=== PATIENT | male | born 1970 | race Caucasian/White ===

== ENCOUNTER 2019-03-08 15:38 | Outpatient (CLI) | payer OTHER, SELFPAY ==
--- NOTE | 2019-03-12 21:55 | ONC FU_ITS ---
Dr. Arrieta Patient Follow-Up Note Patient: Ernesto Chakraborty Unit #: [id number]: 1970 Dicatated By: Tiago Arrieta M.D.Date of Visit:Mar 08, 2019 Onc Med Follow-up/Prog Note Chief Complaint: Pancreatic cancer. History of Present Illness: This is a 48 year-old man with moderately differentiated adenocarcinoma of the pancreas, stage IA (T1, N0, M0). He had been found to have a mass in the mid body of the pancreas in May 2011, discovered in the course of evaluation for a second episode of pancreatitis. Followup CT scans and MRI showed a cystic mass at the pancreatic head/body junction. He underwent exploratory laparotomy with cholecystectomy, left pancreatectomy and splenectomy, partial omentectomy, and intra-abdominal lymph node dissection on 02/07/12. There was a dominant cyst located right at the genu, but pathology also showed multiple other cystlike structures which comprised approximately 20% of the parenchyma. The largest cyst, which measured 4.5 cm, showed focal moderately differentiated adenocarcinoma arising in a background of intraductal pancreatic mucinous neoplasm with low-grade and multifocal high-grade dysplasia. The margin was noted to be uninvolved by invasive carcinoma, but there was low-grade dysplasia noted at the pancreatic resection margin. He was given postoperative adjuvant treatment with radiation and concurrent 5-FU infusion chemotherapy. His treatment was completed on 05/12/2012 to a total radiation dose of 5040 cGy. He has remained on observation following the chemoradiation, thus far with no evidence of recurrence. His postoperative course was complicated by multiple pulmonary emboli, confirmed by CT pulmonary angiogram in February 3012. He continued anticoagulation with warfarin until September 2012. He also developed overt diabetes during his chemoradiation. He has no other medical illnesses. He is a nonsmoker. INTERIM HISTORY: Surveillance CT of the abdomen/pelvis on 05/28/2018 showed postoperative changes of partial pancreatectomy and splenectomy. There was no evidence of recurrent disease. There was evidence of left ventral upper abdominal epigastric hernia with herniation of a small bowel loop. The appearance was unchanged from a previous study in 2018. He is seen for a scheduled followup visit. He has been feeling pretty good generally. His main complaint is that he is recently was given steroid therapy and antibiotic for symptoms of sinusitis and respiratory tract infection. Despite those treatment measures, he still wakes up every morning with head congestion, and he continues to have associated cough productive of yellow sputum. He did have fever over New Year's, at the onset of the infection. His energy is still okay, and he has normal activity. ECOG score is 0. His appetite is good. His weight is basically stable. His breathing was a little tight, but he says it is okay now. He has not been having chest pain. He was having abdominal pain with Tresiba, but that seems to be better now. He has no other GI complaints. He has frequent urination. He has been having pain in his knees and legs, and he also has been having leg cramps at night. He has some headaches. He has no focal neurologic symptoms. Medications: Lisinopril 1 Tablet (of 20 mg) Oral daily, Tresiba 62 Units (of 100 Units/mL) Subcutaneous at bedtime Allergies: No Known Allergies. Review of Systems: Constitutional - His energy is good, and he has normal activity. Appetite is good. His weight is up a little. No fever or night sweats. ECOG score is 0, ENMT - He has had some sinus congestion/drainage. No mouth sores. No sore throat or difficulty swallowing, Hematologic/Lymphatic - No abnormal bruising or bleeding, Respiratory - His breathing was tight, but is OK now. He has had cough productive of yellow sputum. No pleuritic pain or hemoptysis, Cardiovascular - No angina pain. No palpitations, Gastrointestinal - He has had some abdominal pain with Tresiba. No nausea or vomiting. No heartburn or acid reflux. No diarrhea or constipation. No blood in the stool or black stools, Genitourinary (M) - He has urinary frequency. No dysuria or hematuria. No urgency or incontinence, Musculoskeletal - He has had some pain in his knees and legs. He also has leg cramps at night, Integumentary - No skin complications, Neurologic - He has had some headaches. No dizziness. No numbness/paresthesias or other focal neurologic symptoms, Psychiatric - No anxiety or depression. No insomnia. Vital Signs: Performed on Mar 08, 2019 15:55 Height - 73.00 in Weight - 280.2 lbs (HIGH) BSA - 2.48 sq.m BMI - 36.97 (HIGH) Temperature - 97.7 F (LOW) Pulse - 75 /min Respiration - 20 /min BP - 137/99 mm(hg) O2 Sat - 98 % Pain - 0 Physical Examination: Constitutional - He looks good generally, Eyes - Sclerae nonicteric. Conjunctivae clear, ENMT - No lesions noted in the oral cavity, Hematologic/Lymphatic - No cervical, clavicular, or axillary adenopathy, Respiratory - Lungs are clear with good air movement bilaterally, Cardiovascular - Heart rhythm is regular. There is no murmur, gallop, or rub noted, Abdomen - Soft. Liver is not enlarged. There is no abdominal mass or ascites noted and there is no inguinal adenopathy, Extremities - No edema, Neurologic - No focal neurologic deficits noted. Impression: 1. Patient with moderately differentiated adenocarcinoma of the pancreas, stage IA. It had developed in association with intraductal pancreatic mucinous neoplasm. 2. His treatment included left pancreatectomy/splenectomy/partial omentectomy in January 2012 followed by adjuvant chemoradiation, which he completed in April 2012. 3. His surgery was complicated by pulmonary emboli. He continued anticoagulation until September 2012. 4. He developed type II diabetes during the chemoradiation. He had previously been under the care of Dr. Pearce in [place]. He continued on observation following the chemoradiation. During followup he has had some ongoing issues related to his diabetes management. He recently has had persistent sinusitis symptoms despite an initial course of antibiotic therapy. Overall, though, he has been doing well clinically, thus far with no evidence of recurrence of the pancreatic cancer. Plan: He remains on observation/expectant management for the pancreatic cancer. He will continue treatment with Tresiba 62 units daily. He will come in later this week for fasting laboratory studies. In the meantime, he will be given antibiotic coverage with Augmentin for the sinusitis. I will see him again in 1 year, or sooner as needed. Signed By: Tiago Arrieta M.D. <<Signature on File>>
== END 2019-03-08 15:39 | disposition home or self-care (01) ==
LOC: ONCMED 15:41
PROVIDERS: Family Provider Internal Medicine Medical Oncology; PCP Internal Medicine Medical Oncology; Visit Provider Internal Medicine Medical Oncology
DX: Z08 Encounter for follow-up examination after completed treatment for malignant neoplasm (principal); Z85.07 Personal history of malignant neoplasm of pancreas; E11.9 Type 2 diabetes mellitus without complications; Z90.410 Acquired total absence of pancreas; Z92.3 Personal history of irradiation; Z92.21 Personal history of antineoplastic chemotherapy; Z86.711 Personal history of pulmonary embolism; Z79.4 Long term (current) use of insulin
CPT/HCPCS: 99214

== ENCOUNTER 2019-04-02 07:07 | Outpatient (CLI) | payer OTHER, SELFPAY ==
[2019-04-02 08:12] LABS: Basophils # 0.1 10^3/uL (0.0-0.1); Basophils % 0.9 %; Eosinophils # 0.4 10^3/uL (0.0-0.8); Eosinophils % 5.1 %; Hematocrit 48.3 % (42.0-52.0); Hemoglobin 15.9 g/dL (11.7-16.6); Lymphocytes % 25.4 %; Mean Corpuscular HGB Conc 32.9 g/dL (30.0-36.0); Mean Corpuscular Hemoglobin 29.4 pg (28.0-34.0); Mean Corpuscular Volume 89.4 fL (80-94); Monocytes # 0.9 10^3/uL (0.2-0.9); Monocytes % 11.4 %; Neutrophils # 4.4 10^3/uL (1.8-7.7); Neutrophils % 57.1 %; Nucleated Red Blood Cells % 0 %; Platelet Count 398 10^3/cmm (130-400); Red Cell Distribution Width 13.3 % (12.1-15.1); White Blood Count 7.7 10^3/uL (4.0-10.0)
[2019-04-02 08:27] LABS: Estmated Average Glucose 255; Hemoglobin A1C 10.5 % (4.0-6.0)
[2019-04-02 08:36] LABS: Thyroid Stimulating Hormone 3.09 uIU/mL (0.27-4.20)
[2019-04-02 08:47] LABS: Alanine Aminotransferase 14 U/L (0-41); Albumin Level 3.9 g/dL (3.5-5.2); Alkaline Phosphatase 88 IU/L (40-130); Anion Gap 14.5 (5-19); Aspartate Amino Transferase 16 U/L (0-40); Blood Urea Nitrogen 11 mg/dL (6-20); Calcium 9.4 mg/dL (8.5-10.5); Carbon Dioxide 30 mmol/L (22-29); Chloride 98 mmol/L (98-107); Chol HDL Ratio 5.03 mg/dL (1.0-5.00); Cholesterol 181 mg/dL (0-200); Globulin 3.5 g/dL (1.3-4.6); Glomerular Filtration Rate 79.8 mL/min (90-130); Glucose 130 mg/dL (65-115); HDL Cholesterol 36 mg/dL (60-100); Iron 121 ug/dL (59-158); LDL Cholesterol Calculated 121 mg/dL (50-129); LDL HDL Ratio 3.36 RATIO (0.00-3.22); Percent Saturation 41.2 % (20-50); Potassium 4.5 mmol/L (3.5-5.1); Sodium 138 mmol/L (136-145); Total Bilirubin 0.6 mg/dL (0.15-1.2); Total Iron Binding Capacity 293 mcg/dl; Total Protein 7.4 g/dL (6.6-8.7); Triglycerides 121 mg/dL (0-150); Unsaturated Iron Binding 172 ug/dL (112-347)
[2019-04-02 09:22] LABS: Cancer Antigen 19 9 5.9 U/mL (0-35)
== END 2019-04-02 07:08 | disposition home or self-care (01) ==
LOC: ONCMED 07:09
PROVIDERS: Family Provider Internal Medicine Medical Oncology; PCP Internal Medicine Medical Oncology; Visit Provider Internal Medicine Medical Oncology
DX: Z85.07 Personal history of malignant neoplasm of pancreas (principal); E11.9 Type 2 diabetes mellitus without complications; R53.83 Other fatigue; R25.2 Cramp and spasm
CPT/HCPCS: 80053; 80061; 82378; 83036; 83540; 83550; 84443; 85025; 86301

== ENCOUNTER 2020-04-25 15:38 | Outpatient (CLI) | payer OTHER, SELFPAY ==
--- NOTE | 2020-04-26 07:28 | ONC FU_ITS ---
Dr. Arrieta Patient Follow-Up Note Patient: Ernesto Chakraborty Unit #: [id number]: 1970 Dicatated By: Tiago Arrieta M.D.Date of Visit:Apr 25, 2020 Onc Med Follow-up/Prog Note Chief Complaint: Pancreatic cancer. History of Present Illness: This is a 49 year-old man with moderately differentiated adenocarcinoma of the pancreas, stage IA (T1, N0, M0). He had been found to have a mass in the mid body of the pancreas in May 2011, discovered in the course of evaluation for a second episode of pancreatitis. Followup CT scans and MRI showed a cystic mass at the pancreatic head/body junction. He underwent exploratory laparotomy with cholecystectomy, left pancreatectomy and splenectomy, partial omentectomy, and intra-abdominal lymph node dissection on 02/07/12. There was a dominant cyst located right at the genu, but pathology also showed multiple other cystlike structures which comprised approximately 20% of the parenchyma. The largest cyst, which measured 4.5 cm, showed focal moderately differentiated adenocarcinoma arising in a background of intraductal pancreatic mucinous neoplasm with low-grade and multifocal high-grade dysplasia. The margin was noted to be uninvolved by invasive carcinoma, but there was low-grade dysplasia noted at the pancreatic resection margin. He was given postoperative adjuvant treatment with radiation and concurrent 5-FU infusion chemotherapy. His treatment was completed on 05/12/2012 to a total radiation dose of 5040 cGy. He was then followed on observation/expectant management. As of 05/28/[address] abdomen/pelvis showed postoperative changes of partial pancreatectomy and splenectomy. There was evidence of left ventral upper abdominal epigastric hernia with herniation of a small bowel loop, but the appearance was unchanged from a previous study in 2018. There was no evidence of recurrent disease. His postoperative course was complicated by multiple pulmonary emboli, confirmed by CT pulmonary angiogram in February 3012. He continued anticoagulation with warfarin until September 2012. He developed overt diabetes during his chemoradiation, and during subsequent follow-up he also was found to have hypertension. He has no other medical illnesses. He is a nonsmoker. INTERIM HISTORY: He is seen for a scheduled followup visit. He has been feeling pretty good generally, though he was diagnosed with COVID-19 virus infection in February. With had illness he had weakness/fatigue and slight fever for couple of days. His energy is better now, and he is back to normal activity. ECOG score 0. He has good appetite. His weight is up a few pounds. He has had no further fever. During the past 2 to 3 weeks he was having significant night sweating on a pretty regular basis, but that seems to have stopped in the last 2 to 3 days. He has no shortness of breath, cough, or chest pain. He has no GI/ complaints other than frequent urination. He has no significant joint or bone pain. He has just occasional headache. He does not complain of dizziness. He has no numbness/paresthesia or other focal neurologic symptoms. He has continued treatment with Tresiba 62 units daily for the diabetes. He does not check his blood sugars on a regular basis. Medications: Lisinopril 1 Tablet (of 20 mg) Oral daily, Tresiba 62 Units (of 100 Units/mL) Subcutaneous at bedtime Allergies: No Known Allergies. Vital Signs: Performed on Apr 25, 2020 15:52 Height - 73.00 in Weight - 284.4 lbs (HIGH) BSA - 2.50 sq.m BMI - 37.52 (HIGH) Temperature - 97.9 F (LOW) Pulse - 78 /min Respiration - 18 /min BP - 164/90 mm(hg) (HIGH) O2 Sat - 95 % (LOW) Pain - 0 Fatigue - 0 Physical Examination: Constitutional - He looks good generally, Eyes - Sclerae nonicteric. Conjunctivae clear, ENMT - No lesions noted in the oral cavity, Hematologic/Lymphatic - No cervical, clavicular, or axillary adenopathy, Respiratory - Lungs are clear with good air movement bilaterally, Cardiovascular - Heart rhythm is regular. There is no murmur, gallop, or rub noted, Abdomen - Soft. Liver is not enlarged. There is no abdominal mass or ascites noted and there is no inguinal adenopathy, Extremities - No edema, Neurologic - No focal neurologic deficits noted. Problem List: 1. Moderately differentiated adenocarcinoma of the pancreas, stage IA. It had developed in association with intraductal pancreatic mucinous neoplasm. 2. His treatment included left pancreatectomy/splenectomy/partial omentectomy in January 2012 followed by adjuvant chemoradiation, which he completed in April 2012. 3. His surgery was complicated by pulmonary emboli. He continued anticoagulation until September 2012. 4. Type II diabetes during the chemoradiation. 5. Hypertension. Problems Addressed with this Encounter and Plan: 1. Patient with moderately differentiated adenocarcinoma of the pancreas, stage IA. It had developed in association with intraductal pancreatic mucinous neoplasm. His treatment included left pancreatectomy/splenectomy/partial omentectomy in January 2012 followed by adjuvant chemoradiation, which he completed in April 2012. As of May [address] scans had shown no evidence of recurrent neoplasm. During subsequent follow-up his clinical status has remained stable with no evidence of recurrence of the pancreatic cancer. He will be scheduled for repeat laboratory studies to include CBC, comprehensive metabolic profile, and CEA/CA 19-9 levels. In the absence of any evidence of disease progression, I will just see him again in one year. 2. He developed type II diabetes during the chemoradiation. He had previously been under the care of Dr. Pearce in [place]. He has been on treatment with Tresiba 62 units daily. He does not check his blood sugar on a regular basis and he has not continued regular follow-up for it. As of last year his hemoglobin A1c was still significantly elevated at 10.5%, but at that point it was actually improving. I also will repeat his hemoglobin A1c and his fasting lipid profile. Depending on those results, I will adjust medication and/or arrange for referral to an electronic industrial controls mechanic as indicated. 3. Hypertension. His blood pressure is elevated today. He is going to start monitoring it at home. Signed By: Tiago Arrieta M.D. <<Signature on File>>
== END 2020-04-25 15:39 | disposition home or self-care (01) ==
LOC: ONCMED 15:39
PROVIDERS: Family Provider Internal Medicine Medical Oncology; PCP Internal Medicine Medical Oncology; Visit Provider Internal Medicine Medical Oncology
DX: C25.8 Malignant neoplasm of overlapping sites of pancreas (principal); I10 Essential (primary) hypertension; E11.9 Type 2 diabetes mellitus without complications; Z90.411 Acquired partial absence of pancreas; Z90.81 Acquired absence of spleen; Z92.3 Personal history of irradiation; Z92.21 Personal history of antineoplastic chemotherapy; Z86.711 Personal history of pulmonary embolism; Z79.01 Long term (current) use of anticoagulants; Z79.4 Long term (current) use of insulin
CPT/HCPCS: 99214

== ENCOUNTER 2020-05-01 06:12 | Outpatient (CLI) | payer OTHER, SELFPAY ==
[2020-05-01 08:12] LABS: Basophils # 0.1 10^3/uL (0.0-0.1); Basophils % 0.8 %; Eosinophils # 0.3 10^3/uL (0.0-0.8); Eosinophils % 3.7 %; Hematocrit 48.3 % (42.0-52.0); Hemoglobin 15.9 g/dL (11.7-16.6); Lymphocytes % 24.9 %; Mean Corpuscular HGB Conc 32.9 g/dL (30.0-36.0); Mean Corpuscular Hemoglobin 28.9 pg (28.0-34.0); Mean Corpuscular Volume 87.8 fL (80-94); Monocytes # 0.9 10^3/uL (0.2-0.9); Monocytes % 11.1 %; Neutrophils # 4.64 10^3/uL (1.8-7.7); Neutrophils % 59.2 %; Nucleated Red Blood Cells % 0 %; Platelet Count 429 10^3/cmm (130-400); Red Cell Distribution Width 13.4 % (12.1-15.1); White Blood Count 7.8 10^3/uL (4.0-10.0)
[2020-05-01 08:18] LABS: Estmated Average Glucose 272; Hemoglobin A1C 11.1 % (4.0-6.0)
[2020-05-01 08:24] LABS: Carcinoembryonic Antigen 1.3 ng/mL (0.0-4.7); Thyroid Stimulating Hormone 2.24 uIU/mL (0.27-4.20)
[2020-05-01 08:35] LABS: Alanine Aminotransferase 19 U/L (0-41); Alkaline Phosphatase 89 IU/L (40-130); Anion Gap 12.7 (5-19); Aspartate Amino Transferase 17 U/L (0-40); Blood Urea Nitrogen 15 mg/dL (6-20); Calcium 8.7 mg/dL (8.5-10.5); Carbon Dioxide 28 mmol/L (22-29); Chloride 101 mmol/L (98-107); Globulin 3.2 g/dL (1.3-4.6); Glomerular Filtration Rate 102.7 mL/min (90-130); Glucose 126 mg/dL (65-115); Lipase 6 U/L (13-60); Osmolality Calculated 288 mOsm/kg (285-295); Potassium 3.7 mmol/L (3.5-5.1); Sodium 138 mmol/L (136-145); Total Bilirubin 0.6 mg/dL (0.15-1.2); Total Protein 7.2 g/dL (6.6-8.7)
[2020-05-01 08:59] LABS: Cancer Antigen 19 9 5.21 U/mL (0-35)
== END 2020-05-01 06:13 | disposition home or self-care (01) ==
LOC: ONCMED 06:14
PROVIDERS: Visit Provider Internal Medicine Medical Oncology
DX: C25.8 Malignant neoplasm of overlapping sites of pancreas (principal); E11.9 Type 2 diabetes mellitus without complications; E78.5 Hyperlipidemia, unspecified; R53.83 Other fatigue
CPT/HCPCS: 36415; 80053; 82378; 83036; 83690; 84443; 85025; 86301

== ENCOUNTER 2020-05-24 06:19 | Outpatient (CLI) | payer OTHER, SELFPAY ==
[2020-05-24 07:07] LABS: Chol HDL Ratio 4.69 mg/dL (1.0-5.00); Cholesterol 169 mg/dL (0-200); HDL Cholesterol 36 mg/dL (60-100); LDL Cholesterol Calculated 109 mg/dL (50-129); LDL HDL Ratio 3.03 RATIO (0.00-3.22); Triglycerides 118 mg/dL (0-150)
== END 2020-05-24 06:20 | disposition home or self-care (01) ==
LOC: ONCMED 06:20
PROVIDERS: Visit Provider Internal Medicine Medical Oncology
DX: C25.9 Malignant neoplasm of pancreas, unspecified (principal)
CPT/HCPCS: 80061

== ENCOUNTER 2021-04-23 12:31 | Outpatient (CLI) | payer OTHER, SELFPAY ==
[2021-04-23 13:22] LABS: Basophils # 0.1 10^3/uL (0.0-0.1); Basophils % 0.6 %; Eosinophils # 0.2 10^3/uL (0.0-0.8); Eosinophils % 1.9 %; Hematocrit 45.2 % (42.0-52.0); Hemoglobin 14.7 g/dL (11.7-16.6); Lymphocytes # 3.5 10^3/uL (0.8-4.8); Lymphocytes % 32.3 %; Mean Corpuscular HGB Conc 32.5 g/dL (30.0-36.0); Mean Corpuscular Hemoglobin 28.8 pg (28.0-34.0); Mean Corpuscular Volume 88.5 fl (80-94); Mean Platelet Volume 10.8 fL (7.4-10.4); Monocytes # 1.1 10^3/uL (0.2-0.9); Monocytes % 10.1 %; Neutrophils # 5.95 10^3/uL (1.8-7.7); Neutrophils % 54.9 %; Nucleated Red Blood Cells % 0 %; Platelet Count 346 10^3/cmm (130-400); Red Blood Count 5.11 10^6/uL (4.1-5.3); Red Cell Distribution Width 13.1 % (12.1-15.1); White Blood Count 10.8 10^3/uL (4.0-10.0)
[2021-04-23 13:39] LABS: Alanine Aminotransferase 15 U/L (0-41); Albumin Level 4.1 g/dL (3.5-5.2); Alkaline Phosphatase 82 IU/L (40-130); Anion Gap 14.3 (5-19); Aspartate Amino Transferase 15 U/L (0-40); Blood Urea Nitrogen 12 mg/dL (6-20); Calcium 8.4 mg/dL (8.5-10.5); Carbon Dioxide 28 mmol/L (22-29); Chloride 96 mmol/L (98-107); Globulin 2.6 g/dL (1.3-4.6); Glomerular Filtration Rate 119.4 mL/min (90-130); Glucose 216 mg/dL (65-115); Osmolality Calculated 284 mOsm/kg (285-295); Potassium 4.3 mmol/L (3.5-5.1); Sodium 134 mmol/L (136-145); Total Bilirubin 0.5 mg/dL (0.15-1.2); Total Protein 6.7 g/dL (6.6-8.7)
[2021-04-23 14:14] LABS: Cancer Antigen 19 9 4.74 U/mL (0-35)
[2021-04-23 15:39] LABS: Estmated Average Glucose 272; Hemoglobin A1C 11.1 % (4.0-6.0)
--- NOTE | 2021-04-23 19:17 | ONC FU_ITS ---
Dr. Arrieta Patient Follow-Up Note Patient: Ernesto Chakraborty Unit #: [id number]: 1970 Dicatated By: Tiago Arrieta M.D.Date of Visit:Apr 23, 2021 Onc Med Follow-up/Prog Note Chief Complaint: Pancreatic cancer. History of Present Illness: This is a 50 year-old man with moderately differentiated adenocarcinoma of the pancreas, stage IA (T1, N0, M0). He had been found to have a mass in the mid body of the pancreas in May 2011, discovered in the course of evaluation for a second episode of pancreatitis. Followup CT scans and MRI showed a cystic mass at the pancreatic head/body junction. He underwent exploratory laparotomy with cholecystectomy, left pancreatectomy and splenectomy, partial omentectomy, and intra-abdominal lymph node dissection on 02/07/12. There was a dominant cyst located right at the genu, but pathology also showed multiple other cystlike structures which comprised approximately 20% of the parenchyma. The largest cyst, which measured 4.5 cm, showed focal moderately differentiated adenocarcinoma arising in a background of intraductal pancreatic mucinous neoplasm with low-grade and multifocal high-grade dysplasia. The margin was noted to be uninvolved by invasive carcinoma, but there was low-grade dysplasia noted at the pancreatic resection margin. He was given postoperative adjuvant treatment with radiation and concurrent 5-FU infusion chemotherapy. His treatment was completed on 05/12/2012 to a total radiation dose of 5040 cGy. He was then followed on observation/expectant management. As of 05/28/[address] abdomen/pelvis showed postoperative changes of partial pancreatectomy and splenectomy. There was evidence of left ventral upper abdominal epigastric hernia with herniation of a small bowel loop, but the appearance was unchanged from a previous study in 2018. There was no evidence of recurrent disease. His postoperative course was complicated by multiple pulmonary emboli, confirmed by CT pulmonary angiogram in February 3012. He continued anticoagulation with warfarin until September 2012. He developed overt diabetes during his chemoradiation, and during subsequent follow-up he also was found to have hypertension. He has no other medical illnesses. He is a nonsmoker. INTERIM HISTORY: As of his follow-up visit on 04/25/2020 appear to be doing well clinically with no evidence of recurrence of the pancreatic cancer. His hemoglobin A1c, though, was significantly elevated at 11.1%. At that point he had agreed to see an mobile development manager for management of the diabetes, but ultimately that did not happen, mainly because of issues related to the coronavirus restrictions. He is seen for a scheduled follow-up visit. He has been feeling good generally. He has good energy and activity tolerance. ECOG score is 0. He has good appetite. As before, he has not been monitoring his blood sugars. He has not had fever. He occasionally has sweating at night. For the past 3 weeks he has been waking up with sinus/nasal congestion. He has been using Sudafed. He has not had sore mouth or throat. He does not complain of cough. His breathing has otherwise been okay. He has not had chest pain. He has no GI or complaints. He has no significant joint or bone pain. He does not complain of headache or dizziness. He has started having pain occasionally on the bottoms of his toes. I suspect that it is the beginning of neuropathy. Medications: Lisinopril 1 Tablet (of 20 mg) Oral daily, Tresiba 62 Units (of 100 Units/mL) Subcutaneous at bedtime Allergies: No Known Allergies. Vital Signs: Performed on Apr 23, 2021 16:10 Height - 73.00 in BP - 144/81 mm(hg) (HIGH) Performed on Apr 23, 2021 16:08 Height - 73.00 in Weight - 284.2 lbs (LOW) BSA - 2.50 sq.m BMI - 37.50 (HIGH) Temperature - 97.0 F (LOW) Pulse - 70 /min Respiration - 16 /min BP - 157/84 mm(hg) (HIGH) O2 Sat - 99 % Pain - 0 Fatigue - 2 Physical Examination: Constitutional - He looks good generally, Eyes - Sclerae nonicteric. Conjunctivae clear, ENMT - No lesions noted in the oral cavity, Hematologic/Lymphatic - No cervical, clavicular, or axillary adenopathy, Respiratory - Lungs are clear with good air movement bilaterally, Cardiovascular - Heart rhythm is regular. There is no murmur, gallop, or rub noted, Abdomen - Soft. Liver is not enlarged. There is no abdominal mass or ascites noted and there is no inguinal adenopathy, Extremities - No edema, Neurologic - No focal neurologic deficits noted. Lab/Imaging: Test performed on Apr 23, 2021 12:55 Sodium 134 mmol/L Potassium 4.3 mmol/L Chloride 96 mmol/L Est Avg Glucose (eAG) 272 mg/dL CO2 28 mmol/L Anion Gap 14.3 BUN 12 mg/dL Creatinine 0.7 mg/dL Cr Clearance (Est) 230.20 mL/min eGFR 119.4 mL/min Glucose 216 mg/dL Osmolality - Calculated 284 mOsm/kg Calcium 8.4 mg/dL Protein, Total 6.7 g/dL Albumin 4.1 g/dL Globulin 2.6 g/dL Bilirubin, Total 0.5 mg/dL ALT (SGPT) 15 U/L AST (SGOT) 15 U/L Alkaline Phosphatase 82 IU/L Hemoglobin A1C % 11.1 % WBC 10.8 10 3/uL RBC 5.11 10 6/uL HGB 14.7 g/dL HCT 45.2 % MCV 88.5 fl MCH 28.8 pg MCHC 32.5 g/dL RDW 13.1 % Platelet Count 346 10 3/cmm MPV 10.8 fL Neutrophils 5.95 10 3/uL Lymphocytes 3.5 10 3/uL Monocytes 1.1 10 3/uL Eosinophils 0.2 10 3/uL Basophils 0.1 10 3/uL Neutrophil % 54.9 % Lymphocyte % 32.3 % Monocyte % 10.1 % Eosinophil % 1.9 % Basophils % 0.6 % NRBC % 0 % CA 19-9 4.74 U/mL Problem List: 1. Moderately differentiated adenocarcinoma of the pancreas, stage IA. It had developed in association with intraductal pancreatic mucinous neoplasm. 2. His treatment included left pancreatectomy/splenectomy/partial omentectomy in January 2012 followed by adjuvant chemoradiation, which he completed in April 2012. 3. His surgery was complicated by pulmonary emboli. He continued anticoagulation until September 2012. 4. Type II diabetes during the chemoradiation. 5. Hypertension. Problems Addressed with this Encounter and Plan: 1. Patient with moderately differentiated adenocarcinoma of the pancreas, stage IA. It had developed in association with intraductal pancreatic mucinous neoplasm. His treatment included left pancreatectomy/splenectomy/partial omentectomy in January 2012 followed by adjuvant chemoradiation, which he completed in April 2012. As of May [address] scans had shown no evidence of recurrent neoplasm. During subsequent follow-up his clinical status has remained stable with no evidence of recurrence of the pancreatic cancer. At this point he can just continue regular follow-up with his primary care provider. I will see him again as needed. 2. He developed type II diabetes during the chemoradiation. He had previously been under the care of Dr. Pearce in [place]. He has been on treatment with Tresiba 62 units daily. He has not been compliant with checking blood sugars, and his hemoglobin A1c remains significantly elevated at 11.1%. I will again arrange for referral to Dr. Cm for diabetes management. Signed By: Tiago Arrieta M.D. <<Signature on File>>
== END 2021-04-23 12:32 | disposition home or self-care (01) ==
LOC: ONCMED 12:34
PROVIDERS: Visit Provider Internal Medicine Medical Oncology
DX: Z85.46 Personal history of malignant neoplasm of prostate (principal); E11.9 Type 2 diabetes mellitus without complications; I10 Essential (primary) hypertension; Z79.899 Other long term (current) drug therapy
CPT/HCPCS: 36415; 80053; 83036; 85025; 86301; 99214

== ENCOUNTER → 2021-06-20 09:31 | Outpatient (BNVA) | payer OTHER, SELFPAY | PROVIDERS: Visit Provider Internal Medicine | DX: E11.9 Type 2 diabetes mellitus without complications (principal); E78.2 Mixed hyperlipidemia; Z85.46 Personal history of malignant neoplasm of prostate; Z79.4 Long term (current) use of insulin | CPT/HCPCS: 36415; 80061; 82947; 84681 ==

== ENCOUNTER → 2022-05-03 08:41 | Outpatient (BNVA) | payer OTHER, SELFPAY | PROVIDERS: PCP Nurse Practitioner Family; Visit Provider Nurse Practitioner Family | DX: E10.9 Type 1 diabetes mellitus without complications (principal); N52.9 Male erectile dysfunction, unspecified; Z12.5 Encounter for screening for malignant neoplasm of prostate | CPT/HCPCS: 80053; 80061; 82043; 82607; 83036; 84403; 84443; 85025; G0103 ==

== ENCOUNTER → 2022-07-26 09:42 | Outpatient (BNVA) | payer OTHER, SELFPAY | PROVIDERS: PCP Nurse Practitioner Family; Visit Provider Nurse Practitioner Family | DX: E10.9 Type 1 diabetes mellitus without complications (principal) | CPT/HCPCS: 80053; 80061; 83036; 85025 ==

== ENCOUNTER → 2022-10-04 13:02 | Outpatient (BNVA) | payer OTHER, SELFPAY | PROVIDERS: PCP Nurse Practitioner Family; Visit Provider Nurse Practitioner Family | DX: E10.9 Type 1 diabetes mellitus without complications (principal) | CPT/HCPCS: 80053; 80061; 83036; 84443; 85025 ==

== ENCOUNTER 2022-11-08 08:19 | Outpatient (CLI) | payer OTHER, SELFPAY ==
--- NOTE | 2022-11-08 08:45 | MR_ITS ---
WS: [id number] MRI RIGHT SHOULDER HISTORY: M25.511 - Pain in right shoulder COMPARISON: None available. TECHNIQUE: Multiplanar sequences of the shoulder joint are submitted. Mild AC joint arthritis. Mild narrowing of the joint space with small osteophytes encroaching upon th e supraspinatus. There is a small amount of fluid in the subacromial and subdeltoid bursa. 5 mm osteo phyte from the distal undersurface of the acromion with subacromial impingement. There is an associat ed small amount of fluid within the subacromial impingement. No os acromion. Normal position of the b iceps tendon. Abnormal signal in the distal 3 to 4 cm of the supraspinatus tendon. The distal tendon is markedly th ickened with increased signal. There is increased but variable signal in the distal tendon with thick ening. I suspect there may be calcific deposits along the tendon. There is no full-thickness tear or retraction. There is fraying along the bursal articular surface of the tendon. Normal subscapularis t endon. Osteophyte from the coracoid encroaches upon the distal subscapularis tendon. No subscapularis tendon tear. Increased T2 signal in the distal infraspinatus tendon consistent with an insertion sit e tear with fluid extending along the distal tendon. No muscle edema or atrophy. Small subchondral cysts in the humeral head. Increased signal in the superior labrum. Signal is irreg ular shape consistent with a labral tear. There is redundancy and increased intermediate signal surro unding the anterior labrum. This may be redundant labrum/labral fragment or a loose body or calcific density. IMPRESSION: 1. Mild AC joint arthritis. 2. Mild subacromial impingement with a 5 mm osteophyte. 3. Marked tendinopathy in the distal supraspinatus tendon. Within the distal tendon is intermediate s ignal. Consider calcific tendinitis. 4. Simple tear superior labrum. 5. Abnormal configuration of the anterior labrum. There is redundant soft tissue of similar signal in tensity extending from the labrum adjacent to the glenoid. Differential includes displaced labral fra gment, osseous or calcific densities.
== END 2022-11-08 08:20 | disposition home or self-care (01) ==
LOC: RAD 08:20
PROVIDERS: PCP Nurse Practitioner Family; Visit Provider Nurse Practitioner Family
DX: M19.011 Primary osteoarthritis, right shoulder (principal); G89.29 Other chronic pain; M25.811 Other specified joint disorders, right shoulder; M25.711 Osteophyte, right shoulder; M67.911 Unspecified disorder of synovium and tendon, right shoulder; S43.431A Superior glenoid labrum lesion of right shoulder, initial encounter; X58.XXXA Exposure to other specified factors, initial encounter
CPT/HCPCS: 73221

== ENCOUNTER 2022-12-05 06:00 | Outpatient (RCR) | payer OTHER, SELFPAY | END 2022-12-17 23:59 | disposition home or self-care (01) | LOC: SPT 06:00 | PROVIDERS: Visit Provider Orthopaedic Surgery Foot and Ankle Surgery | DX: M25.511 Pain in right shoulder (principal) | CPT/HCPCS: 97110; 97161 ==

== ENCOUNTER 2022-12-18 06:00 | Outpatient (RCR) | payer OTHER, SELFPAY | END 2023-01-16 23:59 | disposition home or self-care (01) | LOC: SPT 06:00 | PROVIDERS: Visit Provider Orthopaedic Surgery Foot and Ankle Surgery | DX: S49.91XD Unspecified injury of right shoulder and upper arm, subsequent encounter (principal); X58.XXXD Exposure to other specified factors, subsequent encounter | CPT/HCPCS: 97110 ==

== ENCOUNTER 2023-03-18 05:53 | Emergency (ER) | payer OTHER, SELFPAY ==
[2023-03-18] VITALS (8 sets, daily range): BP systolic 128–147; BP diastolic 80–99; PULSE 88–109; RESP 16–18; TEMP 36.7; O2SAT 94–97; BMI 36.9
--- NOTE | 2023-03-18 05:57 | ECG_ITS ---
[facility] Test Date: 2023-03-18 Pat Name: Ernesto Chakraborty Department: Room: Gender: Male Engineering And Operations Director: : 1970 Requested By: Yonas Lewis Order Number: [id number] Ramirez MD: Charli Sher M.D. Measurements Intervals [place] Rate: 88 P: 44 ND: 181 QRS: 11 QRSD: 89 T: 48 QT: 349 QTc: 423 Interpretive Statements SINUS RHYTHM No previous ECG available for comparison Electronically Signed On 03-18-2023 18:30:20 GREEN BUILDING ENGINEER by Charli Sher M.D. [id number]
--- NOTE | 2023-03-18 06:00 | XRR_ITS ---
PROCEDURE INFORMATION: Exam: XR Chest Exam date and time: 03/18/2023 7:11 AM Age: 52 years old Clinical indication: Pain; Dyspnea and shortness of breath; Angina pectoris; Patient HX: HX of pancreatic cancer; Additional info: Dyspnea chest pain TECHNIQUE: Imaging protocol: Radiologic exam of the chest. Views: 1 view. COMPARISON: CT merary wo/w [id number] 10/27/2017 12:38 PM FINDINGS: Lungs: Unremarkable. No consolidation. Pleural spaces: Unremarkable. No pleural effusion. No pneumothorax. Heart/Mediastinum: Unremarkable. No cardiomegaly. Bones/joints: Unremarkable. XR/XR chest 1V portable [id number] IMPRESSION: No acute findings.
--- NOTE | 2023-03-18 06:01 | W.ED.CHESTPA ---
Documented by User: Yonas Lewis DO 03/18/23 20:57 HPI - Chest Pain General: Chief Complaint: Chest Pain Stated Complaint: sob cp Time Seen by Provider: 03/18/23 06:01 History of Present Illness: Patient presents to the ER with complaints of chest pain and pressure. Patient was trying to sleep last night when the pain began. Patient was unable to sleep throughout the night and became diaphoretic throughout the night. Patient denies any nausea vomiting shortness of breath. Patient thought it may be his pancreatitis flaring up. Patient does have a history of having Whipple surgery. PFSH ED PFSH: Medical History Erectile dysfunction Hypertension History of pancreatic cancer Carpal tunnel syndrome of right wrist Finger amputation, no complication Diabetes mellitus Surgical History H/O Whipple procedure Family History Father CHF (congestive heart failure) Mother Cancer Large vessel stroke Social History Smoking and tobacco/nicotine status: never used tobacco/nicotine Second hand smoke exposure: No Alcohol intake: never Substance/Drug Use: never Adopted: No Caregiver/support person: No Lives independently: Yes Household members: spouse Housing: House Marital status: Number of children: 3 Highest education level completed: Some College, No Degree service: Yes Current occupational status: employed Course Vital Signs: Vital signs: Vital Signs Temperature 98.0 F 03/18/23 05:56 Pulse Rate 109 H 03/18/23 11:40 Respiratory Rate 16 03/18/23 10:30 Blood Pressure 147/99 03/18/23 11:40 Pulse Oximetry 94 03/18/23 11:40 Oxygen Delivery Me thod Room Air 03/18/23 09:30 MDM - Chest Pain Medical Decision Making I have discussed the patient's case with the oncoming physician <Manuel> and they have assumed care of the patient. We have discussed the current lab/radiographic results that have been resulted in the pending test. Lab Data 03/18/23 06:00 03/18/23 06:00 Radiology Impressions Chest X-Ray 03/18/23 06:00 IMPRESSION: No acute findings. Laboratory Results WBC 18.97 10^3/uL (3.29-11.43) H 03/18/23 06:00 RBC 5.20 10^6/uL (3.85-5.65) 03/18/23 06:00 Hgb 15.50 g/dL (11.27-16.99) 03/18/23 06:00 Hct 45.0 % (37-53) 03/18/23 06:00 MCV 86.5 fl (82-101) 03/18/23 06:00 MCH 29.8 pg (27-33) 03/18/23 06:00 MCHC 34.4 g/dL (30-55) 03/18/23 06:00 RDW 13.5 % (12.1-15.1) 03/18/23 06:00 Plt Count 361 10^3/cmm (157-399) 03/18/23 06:00 MPV 10.4 fL (7.4-10.4) 03/18/23 06:00 Neut % (Auto) 88.2 % 03/18/23 06:00 Lymph % (Auto) 4.4 % 03/18/23 06:00 Cata[place]oula % (Auto) 6.7 % 03/18/23 06:00 Eos % (Auto) 0.0 % 03/18/23 06:00 Baso % (Auto) 0.2 % 03/18/23 06:00 Neut # (Auto) 16.74 10^3/uL (1.8-7.7) H 03/18/23 06:00 Lymph # (Auto) 0.8 10^3/uL (0.8-4.8) 03/18/23 06:00 [place] # (Auto) 1.3 10^3/uL (0.2-0.9) H 03/18/23 06:00 Eos # (Auto) 0.0 10^3/uL (0.0-0.8) 03/18/23 06:00 Baso # (Auto) 0.0 10^3/uL (0.0-0.1) 03/18/23 06:00 Nucleated RBC % (auto) 0 % 03/18/23 06:00 Nucleated RBCs # 0.0 /100WBC 03/18/23 06:00 Sodium 135 mmol/L (136-145) L 03/18/23 06:00 Potassium 4.7 mmol/L (3.5-5.1) 03/18/23 06:00 Chloride 100 mmol/L (98-107) 03/18/23 06:00 Carbon Dioxide 23 mmol/L (22-29) 03/18/23 06:00 Anion Gap 16.7 (5-19) 03/18/23 06:00 BUN 20 mg/dL (6-20) 03/18/23 06:00 Creatinine 0.9 mg/dL (0.7-1.2) 03/18/23 06:00 GFR Calculation 88.6 mL/min (90-130) L 03/18/23 06:00 Glucose 271 mg/dL (65-115) H 03/18/23 06:00 Calculated Osmolality 292 mOsm/kg (285-295) 03/18/23 06:00 Calcium 9.2 mg/dL (8.5-10.5) 03/18/23 06:00 Total Bilirubin 1.0 mg/dL (0.15-1.2) 03/18/23 06:00 AST 234 U/L (0-40) H 03/18/23 06:00 ALT 257 U/L (0-41) H 03/18/23 06:00 Alkaline Phosphatase 183 U/L (40-130) H 03/18/23 06:00 Troponin T Baseline 14 ng/L (0-15) 03/18/23 06:00 Troponin T 120 Minute 12.54 ng/L (0-15) 03/18/23 07:50 Delta Troponin T -1.46 ABS# (0-10) L 03/18/23 07:50 Total Protein 6.9 g/dL (6.6-8.7) 03/18/23 06:00 Albumin 4.1 g/dL (3.5-5.2) 03/18/23 06:00 Globulin 2.8 g/dL (1.3-4.6) 03/18/23 06:00 All radiology interpretation(s) finalized by discharge Discharge Plan Discharge Patient Disposition: Home Clinical Impression: Atypical chest pain Condition: Stable Prescriptions: No Action sildenafil [Viagra] 100 mg tablet 100 mg PO DAILY PRN (Reason: sexual activity) Qty: 10 5RF Rx Instructions: administer 30 minutes to 4 hours before activity diclofenac sodium 75 mg tablet,delayed release (DR/EC) 75 mg PO BID PRN (Reason: pain) Qty: 180 1RF (DME) FreeStyle Cleopatra 14 Day [place] Misc See Rx Instructions .Route Qty: 1 0RF Rx Instructions: check blood sugar five times daily and as needed (DME) FreeStyle Cleopatra 14 Day Sensor Kit See Rx Instructions .Route Qty: 2 12RF Rx Instructions: replace every 14 days insulin glargine [Lantus Solostar U-100 Insulin] 100 unit/mL (3 mL) insulin pen 70 unit SUBCUT QAM Qty: 15 0RF pantoprazole [Protonix] 40 mg tablet,delayed release (DR/EC) 40 mg PO DAILY Qty: 30 1RF valacyclovir [Valtrex] 1 gram tablet 2,000 mg PO BID 1 Days Qty: 4 0RF (DME) lancets [BD Ultra Fine Lancets] 33 gauge misc See Rx Instructions .Route Qty: 100 0RF Rx Instructions: daily and as needed (DME) pen needle, diabetic 32 gauge x 1/4 needle See Rx Instructions .Route Qty: 100 4RF Rx Instructions: daily with insulin lisinopril 20 mg tablet See Rx Instructions .ROUTE .COMPLEX Qty: 90 3RF Dose Instruction: Take 1 tablet by mouth once daily Rx Instructions: Take 1 tablet by mouth once daily Advil 200 mg Tablet 600 mg PO Q6H PRN (Reason: Pain) Novolog FlexPen U-100 Insulin 100 unit/mL (3 mL) Insulin Pen See Rx Instructions .ROUTE .COMPLEX Rx Instructions: sliding scale subcutaneously as needed Discharge Orders: Discharge ED (Routine); Ordered 03/18/23 Ordered By: Ari Jackson Referrals: Mey Banuelos FNP [Primary Care Provider] - Discharge Diet: Advance as tolerated Discharge Activity: Resume usual activity Patient Instructions: Opioid Safety, Pain Management Activity Restrictions/Additional Instructions: Activity Restrictions/Additional Instructions: Thank you for choosing [facility] for your healthcare needs today. Please realize that you were seen in the Emergency Department and that we are providing you with an emergency medical screening exam and this may not be a complete and all inclusive of all the testing and or medical work-up that you may need to determine your ailment or severity of your illness. It is very important that you follow-up as instructed with your Primary care provider or Specialist for additional evaluation and to discuss your medical treatment plan. You may return to the Emergency Department should you have concerns or if your condition changes or worsens in any way. Coding Level of Care Code ED Masonry Supervisor for Chg Fwd Documented by User: Ari Jackson MD 03/30/23 21:31 HPI - Chest Pain General: Chief Complaint: Chest Pain Stated Complaint: sob cp Time Seen by Provider: 03/18/23 06:01 [facility] ED PFSH: Medical History Erectile dysfunction Hypertension History of pancreatic cancer Carpal tunnel syndrome of right wrist Finger amputation, no complication Diabetes mellitus Surgical History H/O Whipple procedure Family History Father CHF (congestive heart failure) Mother Cancer Large vessel stroke Social History Smoking and tobacco/nicotine status: never used tobacco/nicotine Second hand smoke exposure: No Alcohol intake: never Substance/Drug Use: never Adopted: No Caregiver/support person: No Lives independently: Yes Household members: spouse Housing: House Marital status: Number of children: 3 Highest education level completed: Some College, No Degree service: Yes Current occupational status: employed Physical Exam Narrative: EXAM NARRATIVE: Constitutional: the patient appears well nourished and of normal development. Vital signs as documented. No acute distress at present. Alert and oriented-to person, place, time and situation. Head, eyes, ears, nose, mouth, throat: Normocephalic, atraumatic. Pupils-equal, round, reactive to light. No scleral icterus. Normal-appearing external ears. Normal appearing nasal turbinates, no drainage. No obvious oral lesions, posterior oropharynx without erythema or exudates. Neck: Supple, trachea is midline, no lymphadenopathy, no jugular venous distension, thyromegaly, or carotid bruits. Carotid upstrokes are brisk bilaterally. Lungs: clear to auscultation to all lung wood. Symmetrical rise and fall of chest, no obvious signs of increased work of breathing at present. Cardiac: Regular rate and rhythm, positive S1, S2. No murmurs, rubs or gallops that I can appreciate Abdomen: Soft, non-tender to palpation, normal active bowel sounds to all quadrants. No palpable masses, no organomegaly and abdominal bruits. Extremities: 2+ pulses in the upper extremities that are equal bilaterally, 2+ pulses in the lower extremities that are equal bilaterally. Non-edematous. Moves all extremities well, sensation to all extremities are noted. Skin: Warm, dry, intact. Course Vital Signs: Vital signs: Vital Signs Temperature 98.0 F 03/18/23 05:56 Pulse Rate 109 H 03/18/23 11:40 Respiratory Rate 16 03/18/23 10:30 Blood Pressure 147/99 03/18/23 11:40 Pulse Oximetry 94 03/18/23 11:40 Oxygen Delivery Me thod Room Air 03/18/23 09:30 MDM - Chest Pain Lab Data 03/18/23 06:00 03/18/23 06:00 Radiology Impressions Chest X-Ray 03/18/23 06:00 IMPRESSION: No acute findings. Laboratory Results WBC 18.97 10^3/uL (3.29-11.43) H 03/18/23 06:00 RBC 5.20 10^6/uL (3.85-5.65) 03/18/23 06:00 Hgb 15.50 g/dL (11.27-16.99) 03/18/23 06:00 Hct 45.0 % (37-53) 03/18/23 06:00 MCV 86.5 fl (82-101) 03/18/23 06:00 MCH 29.8 pg (27-33) 03/18/23 06:00 MCHC 34.4 g/dL (30-55) 03/18/23 06:00 RDW 13.5 % (12.1-15.1) 03/18/23 06:00 Plt Count 361 10^3/cmm (157-399) 03/18/23 06:00 MPV 10.4 fL (7.4-10.4) 03/18/23 06:00 Neut % (Auto) 88.2 % 03/18/23 06:00 Lymph % (Auto) 4.4 % 03/18/23 06:00 [place]oula % (Auto) 6.7 % 03/18/23 06:00 Eos % (Auto) 0.0 % 03/18/23 06:00 Baso % (Auto) 0.2 % 03/18/23 06:00 Neut # (Auto) 16.74 10^3/uL (1.8-7.7) H 03/18/23 06:00 Lymph # (Auto) 0.8 10^3/uL (0.8-4.8) 03/18/23 06:00 [place] # (Auto) 1.3 10^3/uL (0.2-0.9) H 03/18/23 06:00 Eos # (Auto) 0.0 10^3/uL (0.0-0.8) 03/18/23 06:00 Baso # (Auto) 0.0 10^3/uL (0.0-0.1) 03/18/23 06:00 Nucleated RBC % (auto) 0 % 03/18/23 06:00 Nucleated RBCs # 0.0 /100WBC 03/18/23 06:00 Sodium 135 mmol/L (136-145) L 03/18/23 06:00 Potassium 4.7 mmol/L (3.5-5.1) 03/18/23 06:00 Chloride 100 mmol/L (98-107) 03/18/23 06:00 Carbon Dioxide 23 mmol/L (22-29) 03/18/23 06:00 Anion Gap 16.7 (5-19) 03/18/23 06:00 BUN 20 mg/dL (6-20) 03/18/23 06:00 Creatinine 0.9 mg/dL (0.7-1.2) 03/18/23 06:00 GFR Calculation 88.6 mL/min (90-130) L 03/18/23 06:00 Glucose 271 mg/dL (65-115) H 03/18/23 06:00 Calculated Osmolality 292 mOsm/kg (285-295) 03/18/23 06:00 Calcium 9.2 mg/dL (8.5-10.5) 03/18/23 06:00 Total Bilirubin 1.0 mg/dL (0.15-1.2) 03/18/23 06:00 AST 234 U/L (0-40) H 03/18/23 06:00 ALT 257 U/L (0-41) H 03/18/23 06:00 Alkaline Phosphatase 183 U/L (40-130) H 03/18/23 06:00 Troponin T Baseline 14 ng/L (0-15) 03/18/23 06:00 Troponin T 120 Minute 12.54 ng/L (0-15) 03/18/23 07:50 Delta Troponin T -1.46 ABS# (0-10) L 03/18/23 07:50 Total Protein 6.9 g/dL (6.6-8.7) 03/18/23 06:00 Albumin 4.1 g/dL (3.5-5.2) 03/18/23 06:00 Globulin 2.8 g/dL (1.3-4.6) 03/18/23 06:00 Discharge Plan Discharge Patient Disposition: Home Clinical Impression: Atypical chest pain Condition: Stable Prescriptions: No Action sildenafil [Viagra] 100 mg tablet 100 mg PO DAILY PRN (Reason: sexual activity) Qty: 10 5RF Rx Instructions: administer 30 minutes to 4 hours before activity diclofenac sodium 75 mg tablet,delayed release (DR/EC) 75 mg PO BID PRN (Reason: pain) Qty: 180 1RF (DME) FreeStyle Cleopatra 14 Day [place] Misc See Rx Instructions .Route Qty: 1 0RF Rx Instructions: check blood sugar five times daily and as needed (DME) FreeStyle Cleopatra 14 Day Sensor Kit See Rx Instructions .Route Qty: 2 12RF Rx Instructions: replace every 14 days insulin glargine [Lantus Solostar U-100 Insulin] 100 unit/mL (3 mL) insulin pen 70 unit SUBCUT QAM Qty: 15 0RF pantoprazole [Protonix] 40 mg tablet,delayed release (DR/EC) 40 mg PO DAILY Qty: 30 1RF valacyclovir [Valtrex] 1 gram tablet 2,000 mg PO BID 1 Days Qty: 4 0RF (DME) lancets [BD Ultra Fine Lancets] 33 gauge misc See Rx Instructions .Route Qty: 100 0RF Rx Instructions: daily and as needed (DME) pen needle, diabetic 32 gauge x 1/4 needle See Rx Instructions .Route Qty: 100 4RF Rx Instructions: daily with insulin lisinopril 20 mg tablet See Rx Instructions .ROUTE .COMPLEX Qty: 90 3RF Dose Instruction: Take 1 tablet by mouth once daily Rx Instructions: Take 1 tablet by mouth once daily Advil 200 mg Tablet 600 mg PO Q6H PRN (Reason: Pain) Novolog FlexPen U-100 Insulin 100 unit/mL (3 mL) Insulin Pen See Rx Instructions .ROUTE .COMPLEX Rx Instructions: sliding scale subcutaneously as needed Discharge Orders: Discharge ED (Routine); Ordered 03/18/23 Ordered By: Ari Jackson Referrals: Mey Banuelos FNP [Primary Care Provider] - Discharge Diet: Advance as tolerated Discharge Activity: Resume usual activity Patient Instructions: Opioid Safety, Pain Management Activity Restrictions/Additional Instructions: Activity Restrictions/Additional Instructions: Thank you for choosing [facility] for your healthcare needs today. Please realize that you were seen in the Emergency Department and that we are providing you with an emergency medical screening exam and this may not be a complete and all inclusive of all the testing and or medical work-up that you may need to determine your ailment or severity of your illness. It is very important that you follow-up as instructed with your Primary care provider or Specialist for additional evaluation and to discuss your medical treatment plan. You may return to the Emergency Department should you have concerns or if your condition changes or worsens in any way. Coding Level of Care Code ED Masonry Supervisor for Luis Kay
[2023-03-18 06:09] LABS: Basophils % 0.2 %; Lymphocytes # 0.8 10^3/uL (0.8-4.8); Lymphocytes % 4.4 %; Mean Corpuscular HGB Conc 34.4 g/dL (30-55); Mean Corpuscular Hemoglobin 29.8 pg (27-33); Mean Corpuscular Volume 86.5 fl (82-101); Mean Platelet Volume 10.4 fL (7.4-10.4); Monocytes # 1.3 10^3/uL (0.2-0.9); Monocytes % 6.7 %; Neutrophils # 16.74 10^3/uL (1.8-7.7); Neutrophils % 88.2 %; Nucleated Red Blood Cells % 0 %; Platelet Count 361 10^3/cmm (157-399); Red Cell Distribution Width 13.5 % (12.1-15.1); White Blood Count 18.97 10^3/uL (3.29-11.43)
[2023-03-18 06:30] LABS: Troponin(5th) Baseline 14 ng/L (0-15)
[2023-03-18 06:31] LABS: Alanine Aminotransferase 257 U/L (0-41); Albumin Level 4.1 g/dL (3.5-5.2); Alkaline Phosphatase 183 U/L (40-130); Aspartate Amino Transferase 234 U/L (0-40); Blood Urea Nitrogen 20 mg/dL (6-20); Calcium 9.2 mg/dL (8.5-10.5); Carbon Dioxide 23 mmol/L (22-29); Chloride 100 mmol/L (98-107); Globulin 2.8 g/dL (1.3-4.6); Glomerular Filtration Rate 88.6 mL/min (90-130); Glucose 271 mg/dL (65-115); Osmolality Calculated 292 mOsm/kg (285-295); Sodium 135 mmol/L (136-145); Total Protein 6.9 g/dL (6.6-8.7)
[2023-03-18 06:32] LABS: Anion Gap 16.7 (5-19); Potassium 4.7 mmol/L (3.5-5.1)
--- NOTE | 2023-03-18 07:38 | PC.PHAR ---
pt states he takes care of his own medications-pt states he has tresiba u200 and uses 72 units in the am ext shows last filled 02/16/23 45 units bid-pt states he has a novolog flexpen and uses ss prn ext doesnt show when last filled-medications entered are from what the pt states he takes
--- NOTE | 2023-03-18 08:00 | ECG_ITS ---
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 Measurements Intervals [place] Rate: 92 P: 34 MS: 182 QRS: 7 QRSD: 88 T: 43 QT: 349 QTc: 433 Interpretive Statements SINUS RHYTHM No previous ECG available for comparison Electronically Signed On 03-18-2023 18:33:54 BROADCAST TRANSMITTER OPERATOR by Charli Sher M.D. [id number]
[2023-03-18 08:26] LABS: Troponin 5 2HR 12.54 ng/L (0-15)
[2023-03-18 08:28] LABS: Troponin 5 2HR Delta -1.46 ABS# (0-10)
--- NOTE | 2023-03-18 08:35 | CT_ITS ---
WS: [id number] CT ABDOMEN AND PELVIS WITH CONTRAST HISTORY: abd pain TECHNIQUE: Imaging performed of the abdomen and pelvis with IV contrast. Single phase imaging of the abdomen. Coronal and sagittal reformats are submitted. All CT scans at [facility] use at [address] st one of these dose optimization techniques: automated exposure control; mA and/or kV adjustment per patient size (includes targeted exams where dose is matched to clinical indication); or iterative re construction. IV CONTRAST: Omnipaque 350; 100 mL IV. Oral contrast: No DLP: 1228.43 mGy.cm COMPARISON: 05/28/2018 Lower thorax: Lung bases are clear. Heart is normal size. No hiatal hernia. Liver/biliary system: Normal size with no intrahepatic dilatation. Central pneumobilia. Gallbladder: Prior cholecystectomy. Pancreas: Status post partial pancreatectomy. History of pancreatic cancer. The head of the pancreas remains. The body and distal pancreas have been surgically removed. No recurrent mass. Spleen: Prior splenectomy. Adrenal glands: Normal. Right kidney: Normal size kidney. 1.5 cm cyst from the mid lateral kidney. There is a new enhancing m ass involving the medial central kidney measuring 2.1 x 2.0 x 2.2 cm. This mass has not been present on prior studies. Mass is inseparable from the adjacent ureter and the renal pelvis. Left kidney: Normal. Aorta: Normal. Lymphadenopathy: None. Free fluid: None. GI tract: No small bowel obstruction. Normal appendix. Distal colonic diverticula. Abdominal wall: Ventral abdominal wall hernia to the LEFT of midline contains a loop of nonobstructed small bowel, similar to 2019. Pelvis: No free fluid or adenopathy within the pelvis. Bones: Bilateral pars defects L5. IMPRESSION: 1. Status post partial pancreatectomy. Postsurgical changes involving the pancreatic body are stable . No recurrent mass or adenopathy. 2. Mild pneumobilia. 3. New enhancing mass involving the RIGHT medial kidney closely associated with the proximal ureter and renal pelvis and also the cortex. Enhancing mass measures 2.1 x 2.0 x 2.2 cm and is suspicious fo r renal cell or uroepithelial neoplasm. Recommend additional evaluation. Recommend follow-up renal ma ss CT or MRI protocol. 4. No free fluid or adenopathy. 5. Prior splenectomy. 6. LEFT ventral abdominal wall hernia containing small bowel with no obstruction. Stable since 2019.
[2023-03-18] MEDS: ondansetron 2 mg/ML SDV 2 mL 4 MG IVP (09:28)
[2023-03-18] MEDS: iohexol 350 mg/mL 500 mL Btl (per mL) IV (10:08)
== END 2023-03-18 11:40 | disposition home or self-care (01) ==
PROVIDERS: Emergency Medicine; Emergency Provider Internal Medicine; PCP Nurse Practitioner Family
DX: R07.89 Other chest pain (principal); Z79.4 Long term (current) use of insulin; E11.9 Type 2 diabetes mellitus without complications; I10 Essential (primary) hypertension; Z85.07 Personal history of malignant neoplasm of pancreas
CPT/HCPCS: 36415; 71045; 74177; 80053; 84484; 85025; 93005; 96374; 99285; J2405; Q9967

== ENCOUNTER → 2023-03-21 09:15 | Outpatient (BNVA) | payer OTHER, SELFPAY | PROVIDERS: PCP Nurse Practitioner Family; Visit Provider Nurse Practitioner Family | DX: E10.9 Type 1 diabetes mellitus without complications (principal) | CPT/HCPCS: 80053; 80061; 83036; 84443; 85025; 86308; 86705; 86706; 86709; 86803; 87340 ==

== ENCOUNTER 2023-03-25 14:45 | Outpatient (CLI) | payer OTHER, SELFPAY ==
--- NOTE | 2023-03-25 14:45 | MR_ITS ---
WS: [id number] MRI ABDOMEN WITH AND WITHOUT CONTRAST. COMPARISON: CT abdomen 03/18/2023 Multiplanar, multisequence imaging is performed with and without contrast. MultiHance 20 mL. History: Indeterminate RIGHT renal mass. History of pancreatic cancer. Normal size RIGHT kidney. Nonenhancing variable signal intensity mass in the mid lateral RIGHT kidney measures 1.5 cm x 1.2 cm. There is increased signal within a portion of the mass suggesting calcific ation or blood products. Mass does not enhance and has been present on prior imaging studies. No hydr onephrosis. The recently described mass in the medial RIGHT kidney measures 1.6 x 1.5 cm and is low s ignal on the T1 sequences. Variable increased signal on the T2 sequences. There is very minimal perip heral enhancement. There is no nodularity or discrete soft tissue mass on the postcontrast imaging. N o hydronephrosis. There is mild hepatic steatosis. No hepatic mass. No adrenal mass. Negative LEFT kidney. Partial panc reatectomy. No pancreatic duct or common duct dilatation. No adenopathy or ascites. Mild diffuse cons tipation. IMPRESSION: 1. New indeterminate mass in the medial RIGHT kidney demonstrates very minimal peripheral enhancemen t. There is no solid nodule. Favor this is probably a benign cyst with some mild inflammatory changes . Recommend follow-up renal mass MR protocol in 3 to 4 months to document continued stability. 2. No change in the smaller cyst in the mid lateral RIGHT kidney which also probably contains increa sed protein content. No enhancement. 3. Partial pancreatectomy. 4. No ascites or adenopathy identified. No bile duct dilatation.
[2023-03-25] MEDS: gadobenate dimeglumine 20 mL vial IV (15:59)
== END 2023-03-25 14:46 | disposition home or self-care (01) ==
LOC: RAD 14:46
PROVIDERS: PCP Nurse Practitioner Family; Visit Provider Nurse Practitioner Family
DX: N28.89 Other specified disorders of kidney and ureter (principal); Z85.07 Personal history of malignant neoplasm of pancreas; Z90.411 Acquired partial absence of pancreas
CPT/HCPCS: 74183; A9577

== ENCOUNTER 2023-10-02 16:43 | Outpatient (CLI) | payer OTHER, SELFPAY ==
[2023-10-02 17:45] LABS: Estmated Average Glucose 203; Hemoglobin A1C 8.7 % (4.0-6.0)
[2023-10-02 17:56] LABS: Alanine Aminotransferase 18 U/L (0-41); Albumin Level 4.1 g/dL (3.5-5.2); Alkaline Phosphatase 78 U/L (40-130); Anion Gap 14.8 (5-19); Aspartate Amino Transferase 21 U/L (0-40); Blood Urea Nitrogen 15 mg/dL (6-20); Calcium 8.5 mg/dL (8.5-10.5); Carbon Dioxide 26 mmol/L (22-29); Chloride 102 mmol/L (98-107); Chol HDL Ratio 4.56 mg/dL (1.0-5.00); Cholesterol 164 mg/dL (0-200); Globulin 2.7 g/dL (1.3-4.6); Glomerular Filtration Rate 78.2 mL/min (90-130); Glucose 127 mg/dL (65-115); HDL Cholesterol 36 mg/dL (60-100); LDL Cholesterol Calculated 104 mg/dL (50-129); LDL HDL Ratio 2.89 RATIO (0.00-3.22); Osmolality Calculated 290 mOsm/kg (285-295); Potassium 3.8 mmol/L (3.5-5.1); Sodium 139 mmol/L (136-145); Total Bilirubin 0.4 mg/dL (0.15-1.2); Total Protein 6.8 g/dL (6.6-8.7); Triglycerides 118 mg/dL (0-150)
[2023-10-02 18:14] LABS: Creatinine Urine, Random 96 mg/dL (39-259); Microalbum Creatinine Ratio Ur 10 mg/dL (0-20); Microalbumin Random Urine 1 ug/dL (0-20)
== END 2023-10-02 16:44 | disposition home or self-care (01) ==
LOC: LAB 16:43
PROVIDERS: PCP Nurse Practitioner Family; Visit Provider Internal Medicine
DX: E78.2 Mixed hyperlipidemia (principal); E10.9 Type 1 diabetes mellitus without complications
CPT/HCPCS: 36415; 80053; 80061; 82044; 83036

== ENCOUNTER → 2024-03-19 08:43 | Outpatient (BNVA) | payer OTHER, SELFPAY | PROVIDERS: PCP Nurse Practitioner Family; Visit Provider Nurse Practitioner Family | DX: I10 Essential (primary) hypertension (principal); N52.9 Male erectile dysfunction, unspecified; E78.2 Mixed hyperlipidemia; E10.9 Type 1 diabetes mellitus without complications | CPT/HCPCS: 80053; 80061; 82043; 82306; 82607; 83036; 84403; 84443; 85025; G0103 ==

== ENCOUNTER 2024-05-06 09:07 | Day surgery (SDC) | payer OTHER, SELFPAY ==
[2024-05-06 09:17] VITALS: BP 112/73; PULSE 75; RESP 18; TEMP 36.4; O2SAT 96; BMI 36.9
[2024-05-06] MEDS: sodium chloride 0.9% 500 ML 15 ML IV (09:33)
[2024-05-06 09:38] LABS: Glucose Point of Care 100 mg/dL (70-110)
--- NOTE | 2024-05-06 09:40 | W.PM.OPSFHP ---
Same Day Surgery H&P Indication for Procedure/HPI DATE OF PROCEDURE: May 06, 2024 CHIEF COMPLAINT/INDICATIONFOR SURGICAL PROCEDURE: need for screening colonoscopy PREOP DIAGNOSIS: need for screening colonoscopy PLANNED PROCEDURE: Operation Date: 05/06/24 10:20 Proposed Procedures p Colonoscopy [id number] Z12.11(Not Applicable) - Fredi Erickson MD Medications/Allergies* Home Medications ?Medication ?Instructions ?Recorded ?Confirmed ?Type ibuprofen 200 mg tablet (Advil) 600 mg PO Q6H PRN Pain 03/18/23 05/03/24 History atorvastatin 20 mg tablet 20 mg PO DAILY 05/03/24 05/03/24 History lisinopril 20 mg tablet 20 mg PO DAILY 05/03/24 05/03/24 History omeprazole 40 mg capsule,delayed 40 mg PO DAILY 05/03/24 05/03/24 History release Allergies/Adverse Reactions Allergy/AdvReac Type Severity Reaction Status Date / Time No Known Allergies Allergy Verified 05/06/24 09:19 Current Medications: Generic Name Dose Route Start Last Admin Trade Name Freq PRN Reason Stop Dose Admin Sodium Chloride 500 mls @ 15 mls/hr 05/06/24 09:14 05/06/24 09:33 Sodium Chloride 0.9% IV 05/07/24 09:13 15 mls/hr .Q24H PRN Administration COLONOSCOPY FLUIDS Pertinent History/Comorbid Conditions* Medical History (Updated 03/22/24 @ 09:00 by Adán Cm MD) Erectile dysfunction Hypertension History of pancreatic cancer Carpal tunnel syndrome of right wrist Finger amputation, no complication Diabetes mellitus Surgical History (Updated 03/19/24 @ 08:47 by MIKIE Ahumada) History of colonoscopy around 2014 H/O Whipple procedure Family History (Updated 06/20/21 @ 08:19 by Radha Branham LPN) Father Congestive heart failure (CHF) Father Large vessel stroke Mother Cancer Mother Social History Smoking and tobacco/nicotine status: never used tobacco/nicotine Second hand smoke exposure: No Alcohol intake: never Substance/Drug Use: never Adopted: No Caregiver/support person: No Lives independently: Yes Household members: spouse Housing: House Marital status: Number of children: 3 Highest education level completed: Some College, No Degree service: Yes Current occupational status: employed Pertinent Exam Findings alert, oriented x 3, clear to auscultation bilaterally and regular rate & rhythm Recommendations Surgery/Procedure today Coding Level of Care Code Acute Code for Chg Fwd
--- NOTE | 2024-05-06 10:03 | ANES.PREANE2 ---
Pre-Anesthetic Assessment Height/Weight: Height 6 ft 1 in Weight 280 lb Temp Pulse Resp BP Pulse Ox O2 Del Method 97.6 F 75 18 112/73 96 Room Air 05/06/24 09:17 05/06/24 09:17 05/06/24 09:17 05/06/24 09:17 05/06/24 09:17 05/06/24 09:17 Preop Diagnosis: need for screening colonoscopy Operation Date: 05/06/24 10:20 Proposed Procedures p Colonoscopy [id number](Not Applicable) - Fredi Erickson MD Was Beta Ever taken within 24 hours: N/A Was Clonidine taken within 24 hours: N/A Last intake: Intake Last Liquid Date 05/05/24 Last Liquid Time 20:30 Last Solid Date 05/04/24 Last Solid Time 19:30 Social No alcohol and No tobacco Exam alert, oriented x 3, clear to auscultation bilaterally and regular rate & rhythm Airway Submandibular: within normal limits Cervical ROM: within normal limits Mallampati: Class III Dentition: full Comments: Comments: Large neck circumference Anesthetic Plan ASA status: 3 Anesthesia: MAC Other: No prior issues with anesthesia Completed bowel prep History of GERD on omeprazole BMI 36.9 Type I diabetes, on chronic insulin. Preop BS 100 Labs from February reviewed and acceptable for procedure EKG sinus rhythm METs greater than 4 Plan for MAC anesthesia Medications/Allergies Home Medications ?Medication ?Instructions ?Recorded ?Confirmed ?Last Taken ?Type lancets 33 gauge (BD Ultra Fine #100 ea 09/16/22 04/06/24 05/05/24 Rx Lancets) ibuprofen 200 mg tablet (Advil) 600 mg PO Q6H PRN Pain 03/18/23 05/03/24 05/05/24 History Novolog FlexPen U-100 Insulin 100 See Rx Instructions .Route 12/03/23 05/03/24 05/05/24 Rx unit/mL (3 mL) subcutaneous .COMPLEX #15 mL (insulin aspart U-100) blood-glucose sensor (FreeStyle #6 ea 12/08/23 04/06/24 05/05/24 Rx Cleopatra 3 Sensor device) valacyclovir 1 gram tablet 2,000 mg (2 x 1 gram) PO BID PRN 03/19/24 05/03/24 05/05/24 Rx (Valtrex) cold sore 1 day #30 tabs insulin degludec 200 unit/mL (3 80 unit (0.4 mL) SUBCUT DAILY #36 03/22/24 05/03/24 05/05/24 Rx mL) subcutaneous pen (Tresiba mL FlexTouch U-200 insulin) pen needle, diabetic 32 gauge x #100 ea 03/29/24 04/06/24 05/05/24 Rx 1/4 (BD Ultra-Fine Micro Pen Needle) cholecalciferol (vitamin D3) 1,250 50,000 unit PO .once weekly #12 03/31/24 05/03/24 05/05/24 Rx mcg (50,000 unit) capsule caps polyethylene glycol 3350 17 17 g PO BID 5 days #170 grams 04/06/24 05/03/24 05/05/24 Rx gram/dose oral powder (Miralax) blood-glucose sensor (FreeStyle #2 ea 04/26/24 05/05/24 Rx Cleopatra 3 Plus Sensor device) atorvastatin 20 mg tablet 20 mg PO DAILY 05/03/24 05/03/24 05/05/24 History lisinopril 20 mg tablet 20 mg PO DAILY 05/03/24 05/03/24 05/05/24 History omeprazole 40 mg capsule,delayed 40 mg PO DAILY 05/03/24 05/03/24 05/05/24 History release tadalafil 10 mg tablet (Cialis) 10 mg PO DAILY PRN sexual activity 05/05/24 05/05/24 Rx #10 tabs Allergies Allergy/AdvReac Type Severity Reaction Status Date / Time No Known Allergies Allergy Verified 05/06/24 09:19 Current Medications Generic Name Dose Route Start Last Admin Trade Name Freq PRN Reason Stop Dose Admin Sodium Chloride 500 mls @ 15 mls/hr 05/06/24 09:14 05/06/24 09:33 Sodium Chloride 0.9% IV 05/07/24 09:13 15 mls/hr .Q24H PRN Administration COLONOSCOPY FLUIDS PFSH Anesthesia Medical History Erectile dysfunction Hypertension History of pancreatic cancer Carpal tunnel syndrome of right wrist Finger amputation, no complication Diabetes mellitus Surgical History History of colonoscopy around 2014 H/O Whipple procedure Family History Father Congestive heart failure (CHF) Mother Cancer Large vessel stroke Social History Smoking and tobacco/nicotine status: never used tobacco/nicotine Second hand smoke exposure: No Alcohol intake: never Substance/Drug Use: never Adopted: No Caregiver/support person: No Lives independently: Yes Household members: spouse Housing: House Marital status: Number of children: 3 Highest education level completed: Some College, No Degree service: Yes Current occupational status: employed Data Anesthesia Cardiac Studies: No Data to Display
[2024-05-06 10:33] VITALS: BP 102/73; PULSE 74; RESP 18; TEMP 36.1; O2SAT 96
[2024-05-06 10:56] VITALS: BP 101/77; PULSE 84; RESP 16; O2SAT 96
--- NOTE | 2024-05-06 10:58 | ANE.PACU2 ---
Inpatient post-anesthesia follow up: Airway intact: Yes Vital signs: Temperature 97 F Pulse Rate 84 Respiratory Rate 16 Blood Pressure 101/77 Pulse Oximetry 96 Oxygen Delivery Me thod Room Air Oxygen Flow Rate Fraction of Inspir ed Oxygen Hydration adequate: Yes Nausea and vomiting: No Pain level: 1 Mental status: Baseline
== END 2024-05-06 11:15 | disposition home or self-care (01) ==
PROVIDERS: PCP Nurse Practitioner Family; Visit Provider Surgery
PROC: 0DJD8ZZ Inspection of Lower Intestinal Tract, Via Natural or Artificial Opening Endoscopic (ICD-10-PCS; CPT 45378; principal; 2024-05-06 10:20)
DX: Z12.11 Encounter for screening for malignant neoplasm of colon (principal); E11.9 Type 2 diabetes mellitus without complications; I10 Essential (primary) hypertension; Z85.07 Personal history of malignant neoplasm of pancreas; Z79.899 Other long term (current) drug therapy; Z79.4 Long term (current) use of insulin
CPT/HCPCS: 36416; 45378; 82962; J2704; J7040

== ENCOUNTER → 2024-05-18 11:40 | Outpatient (BNVA) | payer OTHER, SELFPAY | PROVIDERS: PCP Nurse Practitioner Family; Visit Provider Emergency Medicine | DX: B34.9 Viral infection, unspecified (principal); J02.9 Acute pharyngitis, unspecified; J02.8 Acute pharyngitis due to other specified organisms | CPT/HCPCS: 87071; 87400; 87426; 87880 ==

== ENCOUNTER → 2024-06-18 09:20 | Outpatient (BNVA) | payer OTHER, SELFPAY | PROVIDERS: PCP Nurse Practitioner Family; Visit Provider Nurse Practitioner Family | DX: E10.9 Type 1 diabetes mellitus without complications (principal); E78.2 Mixed hyperlipidemia | CPT/HCPCS: 80053; 80061; 82043; 82607; 83036; 84443; 85025 ==

== ENCOUNTER → 2024-06-25 10:17 | Outpatient (BNVA) | payer OTHER, SELFPAY | PROVIDERS: PCP Nurse Practitioner Family; Visit Provider Nurse Practitioner Family | DX: E87.5 Hyperkalemia (principal) | CPT/HCPCS: 80048 ==

== ENCOUNTER 2024-09-17 13:21 | Outpatient (CLI) | payer OTHER, SELFPAY ==
[2024-09-17 14:40] LABS: Creatinine Urine, Random 106 mg/dL (39-259); Microalbum Creatinine Ratio Ur 9 mg/dL (0-20)
[2024-09-17 14:44] LABS: Estmated Average Glucose 160; Hemoglobin A1C 7.2 % (4.0-6.0)
[2024-09-17 15:01] LABS: Alanine Aminotransferase 19 U/L (0-41); Albumin Level 4.1 g/dL (3.5-5.2); Alkaline Phosphatase 72 U/L (40-130); Anion Gap 14.0 (5-19); Aspartate Amino Transferase 24 U/L (0-40); Blood Urea Nitrogen 13 mg/dL (6-20); Calcium 8.9 mg/dL (8.5-10.5); Carbon Dioxide 28 mmol/L (22-29); Chloride 100 mmol/L (98-107); Cholesterol 119 mg/dL (0-200); Globulin 2.8 g/dL (1.3-4.6); Glucose 146 mg/dL (65-115); HDL Cholesterol 35 mg/dL (60-100); Osmolality Calculated 289 mOsm/kg (285-295); Potassium 4.0 mmol/L (3.5-5.1); Sodium 138 mmol/L (136-145); Total Protein 6.9 g/dL (6.6-8.7); Triglycerides 141 mg/dL (0-150)
== END 2024-09-17 13:22 | disposition home or self-care (01) ==
PROVIDERS: PCP Nurse Practitioner Family; Visit Provider Internal Medicine
DX: E78.2 Mixed hyperlipidemia (principal); E10.9 Type 1 diabetes mellitus without complications; Z85.07 Personal history of malignant neoplasm of pancreas; E16.0 Drug-induced hypoglycemia without coma; T38.3X5A Adverse effect of insulin and oral hypoglycemic [antidiabetic] drugs, initial encounter; X58.XXXA Exposure to other specified factors, initial encounter; E10.649 Type 1 diabetes mellitus with hypoglycemia without coma; Z87.19 Personal history of other diseases of the digestive system
CPT/HCPCS: 36415; 80053; 80061; 82044; 82306; 83036

== ENCOUNTER → 2024-09-24 11:27 | Outpatient (BNVA) | payer OTHER, SELFPAY | PROVIDERS: PCP Nurse Practitioner Family; Visit Provider Internal Medicine | DX: E10.649 Type 1 diabetes mellitus with hypoglycemia without coma (principal); E16.0 Drug-induced hypoglycemia without coma; T38.3X5A Adverse effect of insulin and oral hypoglycemic [antidiabetic] drugs, initial encounter; E78.2 Mixed hyperlipidemia; Z87.19 Personal history of other diseases of the digestive system; Z85.07 Personal history of malignant neoplasm of pancreas | CPT/HCPCS: 80048 ==

== ENCOUNTER → 2024-11-12 11:47 | Outpatient (BNVA) | payer OTHER, SELFPAY | PROVIDERS: PCP Nurse Practitioner Family; Visit Provider Nurse Practitioner Family | DX: M17.11 Unilateral primary osteoarthritis, right knee (principal); M25.461 Effusion, right knee; Z87.19 Personal history of other diseases of the digestive system; E10.649 Type 1 diabetes mellitus with hypoglycemia without coma; E16.0 Drug-induced hypoglycemia without coma; T38.3X5A Adverse effect of insulin and oral hypoglycemic [antidiabetic] drugs, initial encounter; Z85.07 Personal history of malignant neoplasm of pancreas; E10.9 Type 1 diabetes mellitus without complications; E78.2 Mixed hyperlipidemia | CPT/HCPCS: 73562; 80053; 80061; 82043; 83036 ==

== ENCOUNTER 2024-12-13 07:10 | Outpatient (CLI) | payer OTHER, SELFPAY ==
--- NOTE | 2024-12-13 07:15 | MR_ITS ---
WS: [id number] MRI RIGHT KNEE NONCONTRAST TECHNIQUE: Axial PD, coronal PD fat sat, coronal PD, sagittal PD, and sagittal PD fat-sat images obtained. CLINICAL INFORMATION: R52 - Pain, unspecified COMPARISON: None. FINDINGS: Distal quadriceps and patellar tendons are intact. Hypertrophic patella. ACL and PCL appear intact. Moderate suprapatellar effusion. Chronic appearing complex tears involving the posterior horn lateral meniscus and posterior horn medial meniscus at the meniscal root. Chronic thinning of the medial and lateral meniscus. Normal LCL. Normal MCL. 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 Hypertrophic changes about the joint line. Moderate chondromalacia patella Lobulated popliteal cyst measuring 5.9 x 1.7 cm MR/MR knee RT wo con* [id number] IMPRESSION: 1. 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 ACL and PCL appear intact. 3. Complex tears involving the posterior horn lateral meniscus and posterior h orn medial meniscus at the meniscal root blunting of the posterior horns. 4. Moderate suprapatellar effusion. 5. Lobulated popliteal cyst measuring 5.9 x 1.7 cm Outbridge grading: grade III: partial-thickness cartilage loss with focal ulcer ation
== END 2024-12-13 07:11 | disposition home or self-care (01) ==
LOC: RAD 07:10
PROVIDERS: PCP Nurse Practitioner Family; Visit Provider Nurse Practitioner Family
DX: R52 Pain, unspecified (principal); M71.21 Synovial cyst of popliteal space [Baker], right knee; S83.271A Complex tear of lateral meniscus, current injury, right knee, initial encounter; S83.231A Complex tear of medial meniscus, current injury, right knee, initial encounter; X58.XXXA Exposure to other specified factors, initial encounter; M25.461 Effusion, right knee
CPT/HCPCS: 73721

== ENCOUNTER → 2025-01-26 09:15 | Outpatient (BNVA) | payer OTHER, SELFPAY | PROVIDERS: PCP Nurse Practitioner Family; Visit Provider Student in an Organized Health Care Education/Training Program | DX: M25.561 Pain in right knee (principal); Z01.89 Encounter for other specified special examinations; M17.11 Unilateral primary osteoarthritis, right knee; S83.241A Other tear of medial meniscus, current injury, right knee, initial encounter; S83.281A Other tear of lateral meniscus, current injury, right knee, initial encounter; X58.XXXA Exposure to other specified factors, initial encounter | CPT/HCPCS: 73560; 73565 ==